=== PATIENT | male | born 1975 | race Caucasian/White ===

== ENCOUNTER 2020-10-10 14:31 | Emergency (ER) | payer OTHER | END 2020-10-10 17:03 | disposition home or self-care (01) | LOC: ER1 14:31 | DX: R05 Cough (principal); R43.8 Other disturbances of smell and taste; Z20.822 Contact with and (suspected) exposure to COVID-19; F17.210 Nicotine dependence, cigarettes, uncomplicated; Z88.8 Allergy status to other drugs, medicaments and biological substances | CPT/HCPCS: 0240U; 99284 ==